=== PATIENT | female | born 1985 | race American Indian/Alaskan Native ===

== ENCOUNTER 2017-06-30 12:18 | Inpatient (IN) | payer OTHER ==
[2017-06-30 12:18] VITALS: BMI 33.3
--- NOTE | 2017-06-30 12:53 | ED PDOC ---
HPI: Psych/Substance Abuse Time Seen by Provider: 06/30/17 12:52 Chief Complaint (Nursing): Psychiatric Evaluation Chief Complaint (Provider): crisis eval History Per: Patient Additional Complaint(s): Hunter is a 31 y/o female who presents to the ED complaining of depression. Patient states that she has been feeling depressed on and off for about a year, but it is now escalating. She is not currently suicidal, but admits to intermittent thoughts of wanting to harm herself in the past few months. She also reports she has been drinking alcohol more frequently and using marijuana to treat her anxiety. Patient was on meds at the beginning of the year for her depression but she stopped taking the meds 3 months later. She does not remember the med she was taking earlier this year. PMD: None Provided Past Medical History Reviewed: Historical Data, Nursing Documentation, Vital Signs Vital Signs: Last Vital Signs Temp 98.7 F 06/30/17 12:44 Pulse 82 06/30/17 12:44 Resp 16 06/30/17 12:44 BP 157/96 H 06/30/17 12:44 Pulse Ox 100 06/30/17 12:44 - Medical History PMH: Depression - Surgical History Surgical History: No Surg Hx - Family History Family History: States: No Known Family Hx - Living Arrangements Living Arrangements: With Family - Social History Current smoker - smoking cessation education provided: No Alcohol: Occasional Drugs: Cannabis - Allergies Allergies/Adverse Reactions: Allergies Allergy/AdvReac Type Severity Reaction Status Date / Time No Known Allergies Allergy Verified 06/30/17 12:44 Review of Systems ROS Statement: Except As Marked, All Systems Reviewed And Found Negative Psych: Positive for: Depression. Negative for: Suicidal ideation Physical Exam - Reviewed Nursing Documentation Reviewed: Yes Vital Signs Reviewed: Yes - Physical Exam Appears: Positive for: Well, Non-toxic, No Acute Distress Head Exam: Positive for: ATRAUMATIC, NORMAL INSPECTION, NORMOCEPHALIC Skin: Positive for: Normal Color. Negative for: Rash Eye Exam: Positive for: Normal appearance Cardiovascular/Chest: Positive for: Regular Rate, Rhythm Respiratory: Positive for: Normal Breath Sounds Neurologic/Psych: Positive for: Alert, Oriented - Laboratory Results Result Diagrams: 06/30/17 15:45 06/30/17 15:45 Urine POC: Negative - ECG O2 Sat by Pulse Oximetry: 100 (RA) Pulse Ox Interpretation: Normal - Other Rad CXR X-Ray: Interpreted by Me, Viewed By Me X-Ray Interpretation: no acute finding Medical Decision Making Medical Decision Making: Time: 13:13 Initial Impression: 31 y/o female here for crisis eval Initial Plan: Crisis consult CBC CMP BAL UDS UA CXR As per crisis counselor and psychiatrist cost control supervisor Dr. Swain, patient is to be admitted. Patient agrees with admission and signed herself in. Patient has UTI, initial dose of Macrobid ordered along with BID order for patient to receive med while admitted. Patient is medically stable for psychiatric admission. Scribe Attestation: Documented by Tim Ortega, acting as a scribe for Kelly Hernandez PA-C Provider Scribe Attestation: All medical record entries made by the Scribe were at my direction and personally dictated by me. I have reviewed the chart and agree that the record accurately reflects my personal performance of the history, physical exam, medical decision making, and the department course for this patient. I have also personally directed, reviewed, and agree with the discharge instructions and disposition. Disposition - Clinical Impression Clinical Impression: Depression - Patient ED Disposition Is Patient to be Admitted: Yes - Disposition Disposition Time: 17:30 Condition: FAIR - Pt Status Changed To: Hospital Disposition Of: Inpatient - Admit Certification Admit to Inpatient:: After my assessment, the patient will require hospitalization for at least two midnights. This is because of the severity of symptoms shown, intensity of services needed, and/or the medical risk in this patient being treated as an outpatient. - POA Present On Arrival: None Results - Lab Results Lab Results: 06/30/17 06/30/17 06/30/17 15:45 15:45 15:40 WBC 10.3 RBC 4.58 Hgb 13.7 Hct 42.0 MCV 91.7 MCH 29.9 MCHC 32.7 L RDW 11.9 Plt Count 290 MPV 8.9 Neut % (Auto) 67.5 Lymph % (Auto) 25.2 [place] % (Auto) 5.0 Eos % (Auto) 1.2 Baso % (Auto) 1.1 Neut # 6.9 Lymph # 2.6 [place] # 0.5 Eos # 0.1 Baso # 0.1 Sodium 144 Potassium 3.5 L Chloride 103 Carbon Dioxide 27 Anion Gap 18 BUN 9 Creatinine 0.7 Est GFR ( Amer) > 60 Est GFR (Non-Af Amer) > 60 Random Glucose 87 Calcium 9.3 Total Bilirubin 1.7 H AST 19 ALT 31 Alkaline Phosphatase 76 Total Protein 8.4 H Albumin 4.6 Globulin 3.7 Albumin/Globulin Ratio 1.2 Urine Color Jolene Urine Clarity Turbid Urine pH 5.0 Ur Specific [place] 1.027 Urine Protein 30 Urine Glucose (UA) Neg Urine Ketones 20 Urine Blood Moderate Urine Nitrate Negative Urine Bilirubin Negative Urine Urobilinogen 0.2-1.0 Ur Leukocyte Esterase Small Urine RBC (Auto) 15 H Urine Microscopic WBC 7 H Ur Squamous Epith Cells 107 H Urine Bacteria Occ H Urine Opiates Screen Urine Methadone Screen Ur Barbiturates Screen Ur Phencyclidine Scrn Ur Amphetamines Screen U Benzodiazepines Scrn U Oth Cocaine Metabols U Cannabinoids Screen Alcohol, Quantitative < 10 06/30/17 15:40 WBC RBC Hgb Hct MCV MCH MCHC RDW Plt Count MPV Neut % (Auto) Lymph % (Auto) [place] % (Auto) Eos % (Auto) Baso % (Auto) Neut # Lymph # [place] # Eos # Baso # Sodium Potassium Chloride Carbon Dioxide Anion Gap BUN Creatinine Est GFR ( Amer) Est GFR (Non-Af Amer) Random Glucose Calcium Total Bilirubin AST ALT Alkaline Phosphatase Total Protein Albumin Globulin Albumin/Globulin Ratio Urine Color Urine Clarity Urine pH Ur Specific [place] Urine Protein Urine Glucose (UA) Urine Ketones Urine Blood Urine Nitrate Urine Bilirubin Urine Urobilinogen Ur Leukocyte Esterase Urine RBC (Auto) Urine Microscopic WBC Ur Squamous Epith Cells Urine Bacteria Urine Opiates Screen Negative Urine Methadone Screen Negative Ur Barbiturates Screen Negative Ur Phencyclidine Scrn Negative Ur Amphetamines Screen Negative U Benzodiazepines Scrn Negative U Oth Cocaine Metabols Negative U Cannabinoids Screen Positive H Alcohol, Quantitative
[2017-06-30 16:08] LABS: BASO # 0.1 K/uL (0.0-0.2); BASO % 1.1 % (0.0-2.0); EOS # 0.1 K/uL (0.0-0.7); EOS % 1.2 % (0.0-4.0); LYMPH # 2.6 K/uL (1.0-4.3); LYMPH % 25.2 % (20.0-40.0); MEAN CELL VOLUME 91.7 fl (81.0-99.0); MEAN CORPUSCULAR HEMOGLOBIN 29.9 pg (27.0-31.0); MEAN CORPUSCULAR HGB CONC 32.7 g/dL (33.0-37.0); MEAN PLATELET VOLUME 8.9 fl (7.2-11.7); MONO # 0.5 K/uL (0.0-0.8); NEUT # 6.9 K/uL (1.8-7.0); NEUT % 67.5 % (50.0-75.0); RED CELL DISTRIBUTION WIDTH 11.9 % (11.5-14.5); WHITE BLOOD COUNT 10.3 K/uL (4.8-10.8)
[2017-06-30 16:22] LABS: RBC URINE 15 /hpf (0-3); URINE BACTERIA OCC (<OCC); URINE BILIRUBIN NEGATIVE (NEGATIVE); URINE BLOOD MODERATE (NEGATIVE); URINE COLOR AMBER (YELLOW); URINE GLUCOSE (UA) NEG (Normal); URINE KETONE 20 mg/dL (NEGATIVE); URINE LEUKOCYTE ESTERASE SMALL Leu/uL (Negative); URINE PROTEIN 30 mg/dL (NEGATIVE); URINE UROBILINOGEN 0.2-1.0 mg/dL (0.2-1.0); WBC URINE 7 /hpf (0-5)
[2017-06-30 16:26] LABS: ALCOHOL SERUM < 10 mg/dl (0-10); ALKALINE PHOSPHATASE 76 U/L (38-126); ALT/SGPT 31 U/L (9-52); AST/SGOT 19 U/L (14-36); BILIRUBIN,TOTAL 1.7 mg/dl (0.2-1.3); BLOOD UREA NITROGEN 9 mg/dl (7-17); CALCIUM 9.3 mg/dL (8.4-10.2); CARBON DIOXIDE 27 mmol/L (22-30); CHLORIDE 103 mmol/L (98-107); GFR AFRICAN-AMERICAN > 60; GLUCOSE,RANDOM 87 mg/dL (65-105); POTASSIUM 3.5 MMOL/L (3.6-5.0); SODIUM 144 mmol/l (132-148); TOTAL PROTEIN 8.4 G/DL (6.3-8.2)
[2017-06-30 17:17] LABS: ALB/GLOB RATIO 1.2 (1.0-2.1)
[2017-06-30 20:46] VITALS: RESP 18
[2017-06-30 21:17] VITALS: O2SAT 98
[2017-06-30] MEDS ORDERED: Magnesium Hydroxide Susp 30 ml UD PO PRN (21:52)
[2017-06-30] MEDS ORDERED: Alum-Mag Hydrox-Simethicone Susp (30 mL) PO PRN (21:52)
[2017-06-30] MEDS ORDERED: DiphenhydrAMINE 50 mg/ml Inj IM PRN (21:52)
--- NOTE | 2017-06-30 22:10 | PCM.BM ---
<AzeemElaine ruiz - Last Filed: 06/30/17 22:08> Treatment Plan Problems - Problems identified on initial assessmt Altered Sleep Pattern Date Initiated: 06/30/17 Time Initiated: 22:09 Assessment reference: NA Status: Active Treatment assets and liabiliti Patient Assests: adapts well, cooperative, ADL independent, negotiates basic needs Patient Liabilities: financial problems, substance abuse - Milieu Protocol Maintain good personal hygiene: daily Encourage regular showers, daily Remind patient to perform daily oral care, every shift Assist patient to perform ADL's Maintain personal safety: every shift Educate patient to report safety concerns to staff, every shift Monitor environment for contraband/sharps Medication safety: Monitor for expected outcome, potential side effects: daily, Assess barriers to learning: daily, Assess readiness for medication education: every shift <Mami Swain - Last Filed: 07/04/17 13:10> - Diagnosis (1) Depression Status: Acute Interventions: 07/04/17 13:10 psychotherapy, pharmacotherapy <Trish Benites - Last Filed: 07/04/17 16:58> Treatment assets and liabiliti Patient Assests: adapts well, cooperative, educated, motivated, ADL independent , negotiates basic needs, cognitively intact Patient Liabilities: financial problems, substance abuse Family Contact - Goals for Treatment Patient goals for treatment: Patient to continue stabilization on 3NP through medication management and group/supportive therapy. Patient to be encouraged to attend groups regularly to promote self-awareness, sobriety, and improve insight , coping skills and self-esteem. Patient to be provided with referral for appropriate level of aftercare to reduce risk of future hospitalizations and ensure safety in the community. Discharge/Continuing Care - Education Needs Education Needs: Patient Medication, Patient Coping Skills, Patient Community resources, Patient Aftercare Safety Plan - Discharge Discharge Criteria: Tolerates medication w/o severe side effects, Free of Suicidal thoughts, Normal sleep pattern, Ability to care for self, No longer exhibiting s/s of withdrawal, Reduction of target symptoms Discharge to:: Home, With Family - Treatment Team Participation Discussed with Family/SO: Yes Was Patient/Family/SO present at Treatment Team Meeting: Yes
--- NOTE | 2017-07-01 08:54 | RAD ---
HISTORY: clearance COMPARISON: No prior. FINDINGS: LUNGS: No active pulmonary disease. PLEURA: No significant pleural effusion identified, no pneumothorax apparent. CARDIOVASCULAR: Normal. OSSEOUS STRUCTURES: No significant abnormalities. VISUALIZED UPPER ABDOMEN: Normal. OTHER FINDINGS: None. IMPRESSION: No interval acute cardiopulmonary disease appreciated.
[2017-07-01 11:06] LABS: T4 8.77 ug/dl (5.5-11.0)
[2017-07-01 11:19] LABS: THYROID STIMULATING HORMONE 0.46 mIU/ML (0.46-4.68)
--- NOTE | 2017-07-01 11:32 | CP.PCM.CON ---
<Fabrice Block - Last Filed: 07/01/17 14:11> History of Present Illness - History of Present Illness History of Present Illness: 31 year old female with PMHx of Depression, substance abuse seen in Psych unit after admission last night. Patient states that she has been becoming increasingly stressed at work over the last few weeks and had a panic attack last night prompting her to come to the hospital for evaluation. Patient states that earlier this year she was diagnosed with depression and was taking Effexor but stopped taking it once she began to feel better. She says that over the last two months she has been self medicating with marijuana and alcohol. She states that she smokes one blunt per day and has roughly 2-3 beers daily. She denies any suicidal or homicidal thoughts at this time. Patient denies any further complaints at this time. Meds: Denies All: Denies PSH: Denies FH: Unremarkable SH: Denies tobacco use, drinks 2-3 beers per day, smokes marijuana daily Review of Systems - Review of Systems Review of Systems: ROS unremarkable outside of HPI Past Patient History - Past Social History Alcohol: Occasional Drugs: Cannabis - CARDIAC Hx Cardiac Disorders: No - PULMONARY Hx Respiratory Disorders: No Hx Tuberculosis: No - NEUROLOGICAL HX Cerebrovascular Accident: No Hx Seizures: No - HEENT Hx HEENT Problems: No - RENAL Hx Chronic Kidney Disease: No - ENDOCRINE/METABOLIC Hx Endocrine Disorders: No - HEMATOLOGICAL/ONCOLOGICAL Hx Blood Disorders: No Hx Cancer: No Hx Human Immunodeficiency Virus (HIV): No - INTEGUMENTARY Hx Dermatological Problems: No - MUSCULOSKELETAL/RHEUMATOLOGICAL Hx Back Pain: Yes - GASTROINTESTINAL Hx Gastrointestinal Disorders: No - GENITOURINARY/GYNECOLOGICAL Hx Genitourinary Disorders: No Hx Sexually Transmitted Disorders: No Hx Urinary Tract Infection: Yes Other/Comment: IUD implant Feb 2016 - PSYCHIATRIC Hx Depression: Yes Hx Substance Use: Yes (marijuana 1-2 daily since age 21) - SURGICAL HISTORY Hx Surgeries: No - ANESTHESIA Hx Anesthesia: No Meds Allergies/Adverse Reactions: Allergies Allergy/AdvReac Type Severity Reaction Status Date / Time No Known Allergies Allergy Verified 06/30/17 12:44 - Medications Medications: Current Medications Acetaminophen (Tylenol 325mg Tab) 650 mg PO Q4 PRN PRN Reason: Pain, moderate (4-7) Al Hydrox/Mg Hydrox/Simethicone (Maalox Plus 30 Ml) 30 ml PO Q4 PRN PRN Reason: Dyspepsia Diphenhydramine HCl (Benadryl) 50 mg IM Q6 PRN PRN Reason: Extrapyramidal S/S Unable PO Diphenhydramine HCl (Benadryl) 50 mg PO HS PRN PRN Reason: Sleep Fluoxetine HCl (Prozac) 10 mg PO DAILY [facility]ANG Haloperidol (Haldol) 5 mg PO Q4 PRN PRN Reason: Agitation Haloperidol Lactate (Haldol) 5 mg IM Q4 PRN PRN Reason: Agitation, Unable to Take PO Lorazepam (Ativan) 2 mg IM Q4 PRN PRN Reason: Anxiety/Agitation,Unable PO Lorazepam (Ativan) 1 mg PO Q4 PRN PRN Reason: Anxiety/Agitation Magnesium Hydroxide (Milk Of Magnesia) 30 ml PO HS PRN PRN Reason: Constipation Nitrofurantoin Macrocrystals (Macrobid) 100 mg PO Q12 [facility] Last Admin: 07/01/17 09:26 Dose: 100 mg Trazodone HCl (Desyrel) 50 mg PO HS [facility] Physical Exam - Constitutional Appears: Well, Non-toxic, No Acute Distress - Head Exam Head Exam: ATRAUMATIC, NORMOCEPHALIC - Eye Exam Eye Exam: EOMI, PERRL Pupil Exam: PERRL - ENT Exam ENT Exam: Mucous Membranes Moist - Neck Exam Neck exam: Positive for: Normal Inspection. Negative for: Tenderness - Respiratory Exam Respiratory Exam: Clear to Auscultation Bilateral, NORMAL BREATHING PATTERN - Cardiovascular Exam Cardiovascular Exam: REGULAR RHYTHM - GI/Abdominal Exam GI & Abdominal Exam: Soft. absent: Distended, Firm, Guarding - Rectal Exam Rectal Exam: Deferred - Extremities Exam Extremities exam: Positive for: normal inspection - Neurological Exam Neurological exam: Alert, Oriented x3 - Psychiatric Exam Psychiatric exam: Depressed - Skin Skin Exam: Intact, Normal Color, Warm Results - Vital Signs Recent Vital Signs: Last Vital Signs Temp 98.2 F 07/01/17 09:00 Pulse 81 07/01/17 09:00 Resp 18 07/01/17 09:00 BP 149/100 H 07/01/17 09:00 Pulse Ox 98 06/30/17 21:17 - Labs Result Diagrams: 06/30/17 15:45 06/30/17 15:45 Labs: Laboratory Results - last 24 hr 06/30/17 06/30/17 06/30/17 15:40 15:40 15:45 WBC RBC Hgb Hct MCV MCH MCHC RDW Plt Count MPV Neut % (Auto) Lymph % (Auto) [place] % (Auto) Eos % (Auto) Baso % (Auto) Neut # Lymph # [place] # Eos # Baso # Sodium 144 Potassium 3.5 L Chloride 103 Carbon Dioxide 27 Anion Gap 18 BUN 9 Creatinine 0.7 Est GFR ( Amer) > 60 Est GFR (Non-Af Amer) > 60 Random Glucose 87 Calcium 9.3 Total Bilirubin 1.7 H AST 19 ALT 31 Alkaline Phosphatase 76 Total Protein 8.4 H Albumin 4.6 Globulin 3.7 Albumin/Globulin Ratio 1.2 Triglycerides Cholesterol LDL Cholesterol Direct HDL Cholesterol Thyroxine (T4) TSH 3rd Generation Urine Color Jolene Urine Clarity Turbid Urine pH 5.0 Ur Specific [place] 1.027 Urine Protein 30 Urine Glucose (UA) Neg Urine Ketones 20 Urine Blood Moderate Urine Nitrate Negative Urine Bilirubin Negative Urine Urobilinogen 0.2-1.0 Ur Leukocyte Esterase Small Urine RBC (Auto) 15 H Urine Microscopic WBC 7 H Ur Squamous Epith Cells 107 H Urine Bacteria Occ H Urine Opiates Screen Negative Urine Methadone Screen Negative Ur Barbiturates Screen Negative Ur Phencyclidine Scrn Negative Ur Amphetamines Screen Negative U Benzodiazepines Scrn Negative U Oth Cocaine Metabols Negative U Cannabinoids Screen Positive H Alcohol, Quantitative < 10 06/30/17 07/01/17 15:45 10:17 WBC 10.3 RBC 4.58 Hgb 13.7 Hct 42.0 MCV 91.7 MCH 29.9 MCHC 32.7 L RDW 11.9 Plt Count 290 MPV 8.9 Neut % (Auto) 67.5 Lymph % (Auto) 25.2 [place] % (Auto) 5.0 Eos % (Auto) 1.2 Baso % (Auto) 1.1 Neut # 6.9 Lymph # 2.6 [place] # 0.5 Eos # 0.1 Baso # 0.1 Sodium Potassium Chloride Carbon Dioxide Anion Gap BUN Creatinine Est GFR ( Amer) Est GFR (Non-Af Amer) Random Glucose Calcium Total Bilirubin AST ALT Alkaline Phosphatase Total Protein Albumin Globulin Albumin/Globulin Ratio Triglycerides 51 Cholesterol 157 LDL Cholesterol Direct 96 HDL Cholesterol 40 Thyroxine (T4) 8.77 TSH 3rd Generation 0.46 Urine Color Urine Clarity Urine pH Ur Specific [place] Urine Protein Urine Glucose (UA) Urine Ketones Urine Blood Urine Nitrate Urine Bilirubin Urine Urobilinogen Ur Leukocyte Esterase Urine RBC (Auto) Urine Microscopic WBC Ur Squamous Epith Cells Urine Bacteria Urine Opiates Screen Urine Methadone Screen Ur Barbiturates Screen Ur Phencyclidine Scrn Ur Amphetamines Screen U Benzodiazepines Scrn U Oth Cocaine Metabols U Cannabinoids Screen Alcohol, Quantitative Assessment & Plan - Assessment and Plan (Free Text) Assessment: 31 year old female with PMHx of Depression, substance abuse seen in Psych unit after admission last night. Plan: 1. Depression/panic attacks - Continue treatment per Psych - Continue medications: Prozac, Haldol, Ativan, Desyrel 2. Hypertension - BP elevated at 149/100 - Monitor - Low sodium, low cholesterol diet - Hypertensive medication to be ordered if hypertension does not resolve 3. Polysubstance abuse - Admitted hx of alcohol and marijuana use - Tox screen + for Cannabinoids - Withdrawal precauations - Continue Benadryl 4. UTI - Urine RBC 15, Urine microscopic WBC 7, Ur squam epith cells 107, Urine bacteria: occasional - Continue Macrobid - F/u urine cx 5. Hypokalemia - K+ low at 3.5 - No treatment at this time - Date & Time Date: 07/01/17 Time: 14:12 <Kim Ward - Last Filed: 07/02/17 11:05> Meds - Medications Medications: Current Medications Acetaminophen (Tylenol 325mg Tab) 650 mg PO Q4 PRN PRN Reason: Pain, moderate (4-7) Al Hydrox/Mg Hydrox/Simethicone (Maalox Plus 30 Ml) 30 ml PO Q4 PRN PRN Reason: Dyspepsia Diphenhydramine HCl (Benadryl) 50 mg IM Q6 PRN PRN Reason: Extrapyramidal S/S Unable PO Diphenhydramine HCl (Benadryl) 50 mg PO HS PRN PRN Reason: Sleep Fluoxetine HCl (Prozac) 10 mg PO DAILY [facility] Last Admin: 07/02/17 09:00 Dose: 10 mg Haloperidol (Haldol) 5 mg PO Q4 PRN PRN Reason: Agitation Haloperidol Lactate (Haldol) 5 mg IM Q4 PRN PRN Reason: Agitation, Unable to Take PO Lorazepam (Ativan) 2 mg IM Q4 PRN PRN Reason: Anxiety/Agitation,Unable PO Lorazepam (Ativan) 1 mg PO Q4 PRN PRN Reason: Anxiety/Agitation Magnesium Hydroxide (Milk Of Magnesia) 30 ml PO HS PRN PRN Reason: Constipation Nitrofurantoin Macrocrystals (Macrobid) 100 mg PO Q12 [facility] Last Admin: 07/02/17 09:00 Dose: 100 mg Trazodone HCl (Desyrel) 50 mg PO HS [facility] Last Admin: 07/01/17 21:11 Dose: 50 mg Results - Vital Signs Recent Vital Signs: Last Vital Signs Temp 99.9 F H 07/02/17 09:00 Pulse 76 07/02/17 09:00 Resp 18 07/02/17 09:00 BP 152/87 H 07/02/17 09:00 Pulse Ox 98 06/30/17 21:17 - Labs Result Diagrams: 06/30/17 15:45 06/30/17 15:45 Labs: Laboratory Results - last 24 hr 07/01/17 07/01/17 07/01/17 10:17 10:17 10:17 Hemoglobin A1c 5.2 LDL Cholesterol Direct 96 Thyroxine (T4) 8.77 TSH 3rd Generation 0.46 RPR Nonreactive Attending/Attestation - Attestation I have personally seen and examined this patient.: Yes I have fully participated in the care of the patient.: Yes I have reviewed all pertinent clinical information: Yes Notes (Text): 07/02/17 10:58 seen examined discussed with resident Dr. Fabrice Block, agree with findings and plan as above
--- NOTE | 2017-07-01 14:42 | PCM.PSYCH ---
Initial Psychiatric Evaluation - Initial Psychiatric Evaluation Type of Admission: Voluntary Chief Complaint (in patient's own words): i am so overwhelmed Patient's Reaction to Hospitalization: pt requested help History of Present Illness and Precipitating Events: pt with previous psychiatric diagnosis of depression since 2014, non compliant with medications or follow up, pt reported has been feeling increasingly depressed and overwhelmed related that to problems at work and conflict with the father of her child, pt indicated for the past two weeks she has been increasingly depressed with poor sleep and poor appetite, started experiencing suicidal ideations, with vague plans, also started experiencing homicidal ideations towards the father of her child with plan to punch him or run over him with her car pt repiorted having visual hallucinations of her grandmother, denied command auditory hallucinations she uses cannabis daily Current Medications: Active Medications Generic Name Dose Route Start Last Admin Trade Name Freq PRN Reason Stop Dose Admin Acetaminophen 650 mg 06/30/17 21:52 Tylenol 325mg Tab PO Q4 PRN Pain, moderate (4-7) Al Hydrox/Mg Hydrox/Simethicone 30 ml 06/30/17 21:52 Maalox Plus 30 Ml PO Q4 PRN Dyspepsia Diphenhydramine HCl 50 mg 06/30/17 21:52 Benadryl IM Q6 PRN Extrapyramidal S/S Unable PO Diphenhydramine HCl 50 mg 06/30/17 22:03 Benadryl PO HS PRN Sleep Fluoxetine HCl 10 mg 07/01/17 11:15 Prozac PO DAILY DANG Haloperidol 5 mg 06/30/17 21:52 Haldol PO Q4 PRN Agitation Haloperidol Lactate 5 mg 06/30/17 21:52 Haldol IM Q4 PRN Agitation, Unable to Take PO Lorazepam 2 mg 06/30/17 21:52 Ativan IM Q4 PRN Anxiety/Agitation,Unable PO Lorazepam 1 mg 06/30/17 21:52 Ativan PO Q4 PRN Anxiety/Agitation Magnesium Hydroxide 30 ml 06/30/17 21:52 Milk Of Magnesia PO HS PRN Constipation Nitrofurantoin Macrocrystals 100 mg 07/01/17 07:00 07/01/17 09:26 Macrobid PO 100 mg Q12 DANG Administration Trazodone HCl 50 mg 07/01/17 22:00 Desyrel PO HS DANG Past Psychiatric History - Past Psychiatric History Explanation of prior treatment: no hx oinpatient psychiatric hospitalizations, hx of outoatient treatment, was on lexapro and in therapy but currently non compliant History of Abuse: denied History of ETOH/Drug Use: hx of cannabis use and alcohol use Pertinent Medical Hx (Current Medical&Sleep Prob, Allergies): Allergies Allergy/AdvReac Type Severity Reaction Status Date / Time No Known Allergies Allergy Verified 06/30/17 12:44 No Known Home Med 06/30/17 Mental Status Examination - Personal Presentation Personal Presentation: Looks stated age - Affect Affect: Constricted, Depressed - Motor Activity Motor Activity: Calm - Reliability in Providing Information Reliability in Providing Information: Poor, due to altered mood - Speech Speech: Relevant - Mood Mood: Depressed, Anxious - Formal Thought Process Formal Thought Process: Hallucinations - Hallucinations/Delusions Hallucinations: Visual - Obsessions/Compulsions Obsessions: No Compulsions: No - Cognitive Functions Orientation: Person, Place, Situation, Time Sensorium: Alert Attention/Concentration: Attentive Judgement: Imparied, as evidence by: Poor judgement Memory: Recent intact, as evidence by: Ability to recall events of the day - Risk Risk: Diminished functioning - Strength & Assets Inventory Strength & Assets Inventory: Education, Employment history - Limitations Additional comments: poor social support DSM 5 DX - DSM 5 DSM 5 Diagnosis: major depression recurrent cannabis use disorder - Recommended/Plan of Treatment Treatment Recommendations and Plan of Treatment: start prozac 10mg with plan to uptitrate start trazodone 50mg qhs CBT group and supportive therapy referral to therapy on discharge Projected ELOS: 5 days Prognosis: guarded Discharge Plan and Discharge Criteria: pt no longer depressed
--- NOTE | 2017-07-02 09:54 | PCM.PYCHPN ---
Psychiatric Progress Note - Psychiatric Progress Note Patient seen today, length of contact: pt seen and evaluated Patient Chief Complaint: This is a 31 yr old female with h/o severe depression,admitted with suicidal and homicidal ideation,multiple stressrs and with poor insight and poor judgement and remains a risk to self and others and signed 48 hr letter f DSM 5 Symptoms Update: major depression,severe Medication Change: No Medical Record Reviewed: Yes Mental Status Examination - Cognitive Function Orientation: Person, Place, Situation, Time Memory: Intact Attention: Poor Concentration: Poor - Mood Mood: Depressed, Anxious - Affect Affect: Constricted, Depressed - Formal Thought Process Formal Thought Process: Hallucinations - Suicidal Ideation Suicidal Ideation: No - Homicidal Ideation Homicidal Ideation: Yes
--- NOTE | 2017-07-03 13:10 | PCM.PYCHPN ---
Psychiatric Progress Note - Psychiatric Progress Note Patient seen today, length of contact: pt seen and evaluated Patient Chief Complaint: This is a 31 yr old female with h/o severe depression,admitted with suicidal and homicidal ideation,multiple stressrs and with poor insight and poor judgement and remains a risk to self and others and signed 48 hr letter pt remains very stressed out and depressed and has agreed to stay longer and rescinded the 48 hrc letter DSM 5 Symptoms Update: depression. Medication Change: No Medical Record Reviewed: Yes Mental Status Examination - Cognitive Function Orientation: Person, Place, Situation, Time Memory: Intact Attention: Poor Concentration: Poor - Mood Mood: Depressed, Anxious - Affect Affect: Constricted, Depressed - Formal Thought Process Formal Thought Process: Hallucinations - Suicidal Ideation Suicidal Ideation: No - Homicidal Ideation Homicidal Ideation: Yes
[2017-07-04 11:45] VITALS: BP 150/102; PULSE 70
--- NOTE | 2017-07-04 13:11 | PCM.PYCHDC ---
Mental Status Examination - Mental Status Examination Orientation: Person, Place, Situation Memory: Intact Mood: Neutral Affect: Broad Speech: Appropriate Attention: WNL Concentration: WNL Association: WNL Fund of Knowledge: WNL Formal Thought Process: No Impairment Description of patient's judgement and insight: good insight and fair judgement Psychotic Thoughts and Behaviors: pt denied any current perceptual disturbances, non elicited Suicidal Ideation: No Current Homicidal Ideation?: No Discharge Summary - Discharge Note Reason for Hospitalization: pt requested help pt with previous psychiatric diagnosis of depression since 2014, non compliant with medications or follow up, pt reported has been feeling increasingly depressed and overwhelmed related that to problems at work and conflict with the father of her child, pt indicated for the past two weeks she has been increasingly depressed with poor sleep and poor appetite, started experiencing suicidal ideations, with vague plans, also started experiencing homicidal ideations towards the father of her child with plan to punch him or run over him with her car pt repiorted having visual hallucinations of her grandmother, denied command auditory hallucinations she uses cannabis daily Consultations:: List each consultation separately and include: 1. Reason for request. 2. Findings. 3. Follow-up Summary of Hospital Course include:: 1. Description of specific treatment plan utilized for patients during their course of treatmen. 2. Summarize the time- course for resolution of acute symptoms and/or regressed behaviors. 3. Describe issues identified and worked on during hospitalization. 4. Describe medication utilized. 5. Describe medical problems identified and treated. 6. Reassessment of suicide risk Summary of Hospital Course: pt on admission was started on prozac 10mg, trazodone 50mg qhs CBT and group therapy provided, no reported side effects of medication pt was educated about the possible negative impact of cannabis on her mood pt on discharge denied any current suicidal or homicidal ideations denied perceptual disturbances pt was referred to outpatient psychiatrist and therapist - Diagnosis (1) Depression Current Visit: Yes Status: Acute - Final Diagnosis (DSM 5) Condition upon Discharge: FAIR Disposition: HOME/ ROUTINE Prescriptions/Medication Reconciliation: FLUoxetine [Prozac] 10 mg PO DAILY 30 Days #30 cap Nitrofurantoin Macrocrystals [Macrobid] 100 mg PO Q12 4 Days #8 cap traZODone [Desyrel] 50 mg PO HS 30 Days #30 tab
[2017-07-04 13:43] VITALS: TEMP 97.9
== END 2017-07-04 14:30 | disposition home or self-care (01) | DRG 885 ==
LOC: H.ER 12:18 → H.ERHOLD 16:18 → H.PSYCH 21:45
PROVIDERS: ADMIT Psychiatry & Neurology Psychiatry; ATTEND Psychiatry & Neurology Psychiatry
PROC: GZHZZZZ Group Psychotherapy (ICD-10-PCS; principal; 2017-07-01)
PROC: GZ51ZZZ Individual Psychotherapy, Behavioral (ICD-10-PCS; 2017-07-01)
DX: F33.9 Major depressive disorder, recurrent, unspecified (principal); R45.850 Homicidal ideations; R45.851 Suicidal ideations; N39.0 Urinary tract infection, site not specified; F41.0 Panic disorder [episodic paroxysmal anxiety]; Z59.9 Problem related to housing and economic circumstances, unspecified; Z87.440 Personal history of urinary (tract) infections; Z91.14 Patient's other noncompliance with medication regimen; Z91.19 Patient's noncompliance with other medical treatment and regimen; R44.1 Visual hallucinations; M54.9 Dorsalgia, unspecified; F12.90 Cannabis use, unspecified, uncomplicated; F17.200 Nicotine dependence, unspecified, uncomplicated; E87.6 Hypokalemia; R03.0 Elevated blood-pressure reading, without diagnosis of hypertension